=== PATIENT | female | born 1995 | race Caucasian/White ===

== ENCOUNTER 2017-07-12 04:41 | Emergency (ER) | payer BC ==
[2017-07-12 04:54] VITALS: BP 125/79; PULSE 63; RESP 18; TEMP 97.9; O2SAT 100
--- NOTE | 2017-07-12 05:19 | EDPHY ---
H & P Stated Complaint: Abd pain Time Seen by Provider: 07/12/17 05:05 HPI/ROS: Chief Complaint: Abdominal pain HPI: 21-year-old woman has been waking up in [place] night for the last 3 nights with upper abdominal pain. At worst pain is about a 5/10. Now is about a 3/10. She has taken some and acids with minimal relief. He does get better when she gets up and walks around. She has not followed up with primary care physician. Does not have a history of similar symptoms in the past. No fevers or chills. No cough. Some nausea. No vomiting. Did have some diarrhea last week but that has since resolved. Her menstrual cycle started today. No dark tarry stools or blood in her stool. ROS: 10 point Review of Systems is negative except as noted in the HPI. PMH: Denies Social History: No smoking, rare alcohol, no recreational drug use Family History: non-contributory Physical Exam: Gen: Awake, Alert, No Distress HEENT: Nose: no rhinorrhea Eyes: PERRLA, EOMI Mouth: Moist mucosa Neck: Supple, no JVD Chest: nontender, lungs clear to auscultation Heart: S1, S2 normal, no murmur Abd: Soft, very mild epigastric tenderness, no guarding Back: no CVA tenderness, no midline tenderness Ext: no edema, non-tender Skin: no rash Neuro: CN II-XII intact, Sensation grossly intact, Strength 5/5 in bilateral upper and lower extremities - Personal History LMP (Females 10-55): 1-7 Days Ago Current Tetanus/Diphtheria Vaccine: Unsure Current Tetanus Diphtheria and Acellular Pertussis (TDAP): Unsure - Medical/Surgical History Hx Asthma: No Hx Chronic Respiratory Disease: No Hx Diabetes: No Hx Cardiac Disease: No Hx Renal Disease: No Hx Cirrhosis: No Hx Alcoholism: No Hx HIV/AIDS: No Hx Splenectomy or Spleen Trauma: No Other PMH: PSHx: denies. 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 She is having pain only at night. It goes away when she stands up. Improved with antacids. I have recommended that she start on an H2 blockers such as Pepcid. Follow up with [facility] symptoms are not improving. Departure - Departure Disposition: Home, Routine, Self-Care Clinical Impression: GERD (gastroesophageal reflux disease) Condition: Good Instructions: Gastroesophageal Reflux Disease (ED) Additional Instructions: You may start taking famotidine (Pepcid) available [id number] per package instructions for symptoms. Follow up at [facility] in 3-4 days if symptoms are not improving. Return to the emergency department for increasing abdominal pain, uncontrolled nausea vomiting, fevers, chills, or any other concerns. Referrals: Bertha Phan MD [Primary Care Provider] - As per Instructions [facility] CHRISTIANSON ,. [Clinic] - As per Instructions
== END 2017-07-12 05:27 | disposition home or self-care (01) ==
DX: K21.9 Gastro-esophageal reflux disease without esophagitis (principal)

== ENCOUNTER 2017-08-01 17:36 | Emergency (ER) | payer BC ==
[2017-08-01 17:42] VITALS: BP 120/91; PULSE 70; RESP 16; TEMP 97.9; O2SAT 99
--- NOTE | 2017-08-01 18:00 | EDPHY ---
H & P Stated Complaint: hit forehead on metal in trunk of car/no loc Time Seen by Provider: 08/01/17 17:53 HPI/ROS: CHIEF COMPLAINT: Hematoma HISTORY OF PRESENT ILLNESS: The patient is a 21-year-old female who was looking around the trunk of her car when she hit her left forehead on the side of the trunk. She did not lose consciousness. She did not have any vision changes. She has a mild headache. No nausea or seizure-like activity. She was concerned because she hit her head a few years ago and had a large hematoma that mostly resolved but left a small calcified hematoma. She is concerned that she will get another one. REVIEW OF SYSTEMS: Constitutional: denies: chills, fever, recent illness, recent injury EENTM: denies: blurred vision, double vision, nose congestion Respiratory: denies: cough, shortness of breath Cardiac: denies: chest pain, irregular heart rate, lightheadedness, palpitations Gastrointestinal/Abdominal: denies: abdominal pain, diarrhea, nausea, vomiting, blood streaked stools Genitourinary: denies: dysuria, frequency, hematuria, pain Musculoskeletal: denies: joint pain, muscle pain Skin: See HPI Neurological: denies: headache, numbness, paresthesia, tingling, dizziness, weakness Hematologic/Lymphatic: denies: blood clots, easy bleeding, easy bruising Immunologic/allergic: denies: HIV/AIDS, transplant EXAM: GENERAL: Well-appearing, well-nourished and in no acute distress. HEAD: Atraumatic, normocephalic. EYES: Pupils equal round and reactive to light, extraocular movements intact, sclera anicteric, conjunctiva are normal. ENT: Small hematoma left forehead, TMs normal, nares patent, oropharynx clear without exudates. Moist mucous membranes. NECK: Normal range of motion, supple without lymphadenopathy or JVD. LUNGS: Breath sounds clear to auscultation bilaterally and equal. No wheezes rales or rhonchi. HEART: Regular rate and rhythm without murmurs, rubs or gallops. ABDOMEN: Soft, nontender, normoactive bowel sounds. No guarding, no rebound. No masses appreciated. BACK: No CVA tenderness, no spinal tenderness, step-offs or deformities EXTREMITIES: Normal range of motion, no pitting or edema. No clubbing or cyanosis. NEUROLOGICAL: Cranial nerves II through XII grossly intact. Normal speech, normal gait. 5/5 strength, normal movement in all extremities, normal sensation PSYCH: Normal mood, normal affect. SKIN: Warm, dry, normal turgor, no visible rashes or lesions. Source: Patient Exam Limitations: No limitations - Personal History LMP (Females 10-55): 22-28 Days Ago Current Tetanus/Diphtheria Vaccine: Yes - Medical/Surgical History Hx Asthma: No Hx Chronic Respiratory Disease: No Hx Diabetes: No Hx Cardiac Disease: No Hx Renal Disease: No Hx Cirrhosis: No Hx Alcoholism: No Hx HIV/AIDS: No Hx Splenectomy or Spleen Trauma: No Other PMH: PSHx: denies. 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 with splenomegaly - Family History Significant Family History: No pertinent family hx - Social History Smoking Status: Never smoked Alcohol Use: Sober Drug Use: None Constitutional: Initial Vital Signs Temperature (C) 36.6 C 08/01/17 17:39 Heart Rate 70 08/01/17 17:39 Respiratory Rate 16 08/01/17 17:39 Blood Pressure 120/91 H 08/01/17 17:39 O2 Sat (%) 99 08/01/17 17:39 O2 Delivery Mode Room Air Allergies/Adverse Reactions: Cephalosporins Allergy (Verified 08/01/17 17:37) Home Medications: Medication Instructions Recorded Trinessa Tablet 03/19/16 Medical Decision Making Procedures: The patient's hematoma was dressed with a mild compression dressing and ice. ED Course/Re-evaluation: We discussed measures to take to minimize the hematoma including compression, ice and elevation. The patient understands. The we discussed the expected course. We discussed indications for returning. Differential Diagnosis: Partial list of the Differential diagnosis considered include but were not limited to; hematoma, concussion and although unlikely based on the history and physical exam, I also considered fracture, intracranial injury, neck injury. I discussed these differential diagnoses and the plan with the patient as well as the usual and expected course. The patient understands that the diagnosis is provisional and that in medicine we are not always correct and that further workup is often warranted. Usual and customary warnings were given. All of the patient's questions were answered. The patient was instructed to return to the emergency department should the symptoms at all worsen or return, otherwise to followup with the physician as we discussed. Departure - Departure Disposition: Home, Routine, Self-Care Clinical Impression: Traumatic hematoma of forehead Qualifiers: Encounter type: initial encounter Qualified Code(s): S00.83XA - Contusion of other part of head, initial encounter Condition: Fair Instructions: Hematoma (ED) Referrals: NONE *PRIMARY CARE P,. [Primary Care Provider] - As per Instructions
== END 2017-08-01 18:06 | disposition home or self-care (01) ==
DX: S00.83XA Contusion of other part of head, initial encounter (principal); W22.8XXA Striking against or struck by other objects, initial encounter; Y93.89 Activity, other specified

== ENCOUNTER → 2018-09-02 | Outpatient (CLI) | payer BC | LOC: FIMAGING 10:38 | PROVIDERS: ATTEND Otolaryngology | DX: J34.9 Unspecified disorder of nose and nasal sinuses (principal) ==

== ENCOUNTER 2018-09-16 19:29 | Emergency (ER) | payer BC ==
--- NOTE | 2018-09-16 19:43 | EDPHY ---
H & P Stated Complaint: SWOLLEN LYMPH NODE UNDER L EAR X 1 HR Time Seen by Provider: 09/16/18 19:37 HPI/ROS: HPI: This is a 23-year-old female who presents with Chief Complaint: Swollen lymph node under left ear x1 hour Location: Behind left ear Quality: Swollen lymph node Duration: 1 hr Signs and Symptoms: no fever, no nausea, no vomiting, no diarrhea, no urinary symptoms, no chest pain, no shortness of breath, no wheezing, no cough, no sore throat, no neck stiffness, no joint pain, no swollen glands, no ear pain, no rash Timing: Acute Severity: Mild Context: Patient is a student at [employer] who presents with complaints of sudden onset of left lower jaw discomfort and swelling that started while she was trying to eat dinner approximately 1 hr prior to arrival. She reports that the swelling and discomfort come and go. She reports that she stopped chewing in the swelling has decreased by approximately 50%. She denies any ear pain, tinnitus, rash, dental cavities, dental pain, neck swelling , trauma. No recent upper respiratory infection or fevers. Modifying Factors: None Comment: ROS: A comprehensive 10 system review of systems is otherwise negative aside from elements mentioned in the history of present illness. 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 Social history: Family history noncontributory. CONSTITUTIONAL: Extremely well-appearing, talkative, young adult white female, awake and alert, no obvious distress HEENT: Atraumatic and normocephalic, PERRL, EOMI. Nares patent; no rhinorrhea; no nasal mucosal edema. Tympanic membranes clear. Oropharynx clear, no tonsillar hypertrophy, uvula midline, no exudate and moist pink mucosa. No dental cavities or abscess. No gingival swelling. There is a small aphthous ulcer on the inside left upper buccal mucosa that is measuring approximately1/8 cm in size with no active bleeding. No TMJ tenderness. Mild parotid gland swelling but no skin color changes. Airway patent. No lymphadenopathy. No meningismus. No carotid bruits. Cardiovascular: Normal S1/S2, regular rate, regular rhythm, without murmur rub or gallop. PULMONARY/CHEST: Symmetrical and nontender. Clear to auscultation bilaterally. Good air movement. No accessory muscle usage. ABDOMEN: Soft, nondistended, nontender, no rebound, no guarding, no peritoneal signs, no masses or organomegaly. No CVAT. EXTREMITIES: 2/2 pulses, strength 5/5, no deformities, no clubbing, no cyanosis or edema. NEUROLOGICAL: no focal neuro deficits. GCS 15. Speech clear. SKIN: Warm and dry, no erythema. no rash. Good capillary refill. Source: Patient Exam Limitations: No limitations - Personal History LMP (Females 10-55): 8-14 Days Ago Current Tetanus Diphtheria and Acellular Pertussis (TDAP): Yes - Medical/Surgical History Hx Asthma: No Hx Chronic Respiratory Disease: No Hx Diabetes: No Hx Cardiac Disease: No Hx Renal Disease: No Hx Cirrhosis: No Hx Alcoholism: No Hx HIV/AIDS: No Hx Splenectomy or Spleen Trauma: No Other PMH: PSHx: denies. 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 with splenomegaly - Social History Smoking Status: Never smoked Constitutional: Initial Vital Signs Temperature (C) 37.1 C 09/16/18 19:33 Heart Rate 79 09/16/18 19:33 Respiratory Rate 16 09/16/18 19:33 Blood Pressure 142/96 H 09/16/18 19:33 O2 Sat (%) 100 09/16/18 19:33 O2 Delivery Mode Room Air Allergies/Adverse Reactions: Cephalosporins Allergy (Verified 08/01/17 17:37) Home Medications: Medication Instructions Recorded Trinessa Tablet 03/19/16 Amoxicillin/Clavulanate Pot 875 mg PO BID #14 tab 09/16/18 [Augmentin 875 MG TAB (*)] oxyCODONE/APAP 5/325 [Percocet 1 - 2 tab PO Q4H PRN #10 tab 09/16/18 5/325 (*)] Medical Decision Making ED Course/Re-evaluation: Vital signs reviewed and stable upon arrival. No signs of otitis media, tonsillar abscess, dental abscess, facial cellulitis, lymphadenopathy, superior vena cava syndrome, carotid artery bruits, mumps Suspect this is salivary gland stone Attempted to palpate and milk the parotid gland with no relief of swelling. Offered patient IV access, laboratory studies, pain control, CT maxillofacial scan for definitive diagnosis but patient politely declines and wishes to proceed with supportive treatment 1st. Believe this to be reasonable as symptoms started 1 hr prior to arrival, patient tolerating p.o., not septic in appearance. Patient given instructions to take sialagogues, apply warm compresses, milk the parotid gland from posterior to anterior direction, pain control. Patient was given a prescription for Augmentin and advised to only start if signs of infection. Patient will follow up with her primary care provider on Sunday or Sunday if symptoms have not improved. She is tolerating p.o. No signs of airway compromise This patient was seen under the supervision of my secondary supervising physician. I evaluated care for this patient with attending. Differential Diagnosis: Differential diagnosis includes but is not limited to lymphadenitis, lymphadenopathy, buccal space infections, dental problems, facial cellulitis, herpes zoster, skin former space infections, neoplasm, granuloma, parotitis, superior vena cava syndrome Departure - Departure Disposition: Home, Routine, Self-Care Clinical Impression: Sialolithiasis Condition: Good Instructions: Parotid Duct Obstruction (ED) Additional Instructions: Use sugar-free gum or candies such as lemon drops, or suck on a lemon wedge. They increase saliva, which may help push the stone out. Gently massage the affected gland to help move the stone. Take Tylenol 650 mg every 4 hours and/or Ibuprofen 600 mg every 8 hours with food as needed for pain. Use Percocet every 6 hours as needed for severe/break through pain. Do not use Tylenol and Percocet concomitantly. Apply warm compresses for 30 minutes at a time; 2-3 times per day for the next 1 -2 days. Start antibiotics only if you develop fever, redness, warmth. Follow up with PCP in 2 days days if symptoms do not improve at which time they will evaluate and recommend with you if conservative management versus CT maxillofacial scan is indicated. Referrals: Bertha Phan MD [Primary Care Provider] - As per Instructions Prescriptions: Amoxicillin/Clavulanate Pot [Augmentin 875 MG TAB (*)] 875 mg PO BID #14 tab oxyCODONE/APAP 5/325 [Percocet 5/325 (*)] 1 - 2 tab PO Q4H PRN #10 tab PRN Reason: Pain, Severe
[2018-09-16 20:03] VITALS: BP 129/78
== END 2018-09-16 20:03 | disposition home or self-care (01) ==
DX: K11.5 Sialolithiasis (principal); E03.9 Hypothyroidism, unspecified